=== PATIENT | female | born 1985 | race Caucasian/White ===

== ENCOUNTER → 2016-10-26 | Outpatient (CLI) | payer OTHER ==
--- NOTE | 2016-10-26 09:50 | US ---
EXAMINATION TYPE: US transvaginal DATE OF EXAM: 10/26/2016 9:10 AM COMPARISON: CT 2013 on PACS CLINICAL HISTORY: Pelvic Pain R10.2. right pelvic pain x 6 months noted one week prior to menses and also noted with intercourse; ; tubal ligation TECHNIQUE: Transvaginal (TV) Date of LMP: 10/16/2016 EXAM MEASUREMENTS: Uterus: 8.1 x 5.4 x 4.0 cm Endometrial Stripe: 1.0 cm Right Ovary: 4.5 x 3.1 x 2.4 cm Left Ovary: 2.6 x 2.0 x 2.0 cm TECHNOLOGIST IMPRESSION: 1. Uterus: Anteverted; Small Nabothian cyst noted in CX = 0.3 x 0.3 x 0.2cm 2. Endometrium: anechoic fluid area noted upper left endometrium = 1.4 x 0.6 x 0.3cm 3. Right Ovary: multifollicular with largest as involuting,thick walled cyst =2.2 x 2.2 x 1.8cm 4. Left Ovary: multiple small follicles present Spectral, color and waveform Doppler imaging shows good arterial and venous flow within the ovaries ; there is no evidence for ovarian torsion. 5. Bilateral Adnexa: wnl 6. Posterior cul-de-sac: wnl IMPRESSION: 1. Right ovarian cyst. 2. Minimal fluid within the endometrial canal
== END | disposition home or self-care (01) ==
LOC: RADUSWWP 08:43
PROVIDERS: ATTEND Obstetrics & Gynecology
DX: N83.201 Unspecified ovarian cyst, right side (principal)
CPT/HCPCS: 76830